=== PATIENT | female | born 1950 | race Caucasian/White ===

== ENCOUNTER 2020-06-10 13:07 | Inpatient (IN) ==
--- NOTE | 2020-06-10 13:23 | Emergency Department Note ---
SOB HPI General Chief Complaint: Shortness of Breath/Dyspnea Stated Complaint: Shortness of breath Time Seen by Provider: 06/10/20 13:22 History of Present Illness HPI Narrative: 69-year-old morbidly obese patient who presented to the urgent care yesterday with viral symptoms. She was tested for Covid, which is pending. She presents again today now with complaints of worsening shortness of breath. Her pulse ox on room air is 89% and her heart rate is 99 bpm. She is afebrile. She has a history of pulmonary fibrosis on nocturnal O2. She was diagnosed with this 4 years ago after a prolonged exposure to birds. She notes that her home oxygen requirement is usually 2 L only at night. Her sats typically run 90% on room air. Since last she has had increasing oxygen requirements needing 3 L nasal cannula 24 hours a day. She notes that her O2 sats dropped down to 84% on room air. She is unable to do any exertional activities due to shortness of breath. She has had a low-grade nonproductive cough. She complains of daily diarrhea up to 4 times a day. Yesterday it was watery, today it has "chunks" in it. No hematochezia or melena. Patient has significant comorbidities to include morbid obesity, diabetes, history of DVT on chronic anticoagulation, hyperlipidemia and hypertension. Related Data Home Medications Medication Instructions Recorded Confirmed docusate sodium 100 mg capsule 100 mg PO BID 05/05/20 06/10/20 metformin 500 mg tablet,extended See Rx Instructions .ROUTE .COMPLEX 05/05/20 06/10/20 release 24 hr simvastatin 5 mg tablet 20 mg PO HS 05/05/20 06/10/20 warfarin 7.5 mg tablet See Rx Instructions .ROUTE 05/05/20 06/10/20 .COMPLEX tab coenzyme Q10 200 mg capsule 200 mg PO QHS 06/09/20 06/10/20 lisinopril 10 mg tablet 10 mg PO HS 06/09/20 06/10/20 acetaminophen [Tylenol Extra 1,000 mg PO Q6H PRN 06/10/20 06/10/20 Strength] Allergies Allergy/AdvReac Type Severity Reaction Status Date / Time No Known Intolerances Allergy Unknown NONE Verified 06/10/20 13:31 [NO KNOWN INTOLERANCES] Review of Systems ROS ROS Narrative: Narrative: PFSH Narrative Patient History Narrative: Narrative: Medical/Surgical/Family History All Active Problems (Updated 06/10/20 @ 22:48 by Myla Matt PA-C) Pneumonia due to 2019 novel coronavirus (Acute) Diarrhea (Acute) Viral syndrome (Acute) History of surgery (Chronic) Morbid obesity (Chronic) Hypertension (Chronic) Chronic bronchitis (Chronic) Personal history of other venous thrombosis and embolism (Chronic) Type 2 diabetes mellitus without complications (Chronic) Low back pain (Chronic) Spondylosis without myelopathy or radiculopathy, lumbar region (Chronic) Spinal stenosis, lumbar region with neurogenic claudication (Chronic) Other intervertebral disc degeneration, lumbar region (Chronic) Radiculopathy, lumbar region (Chronic) Chronic pain (Chronic) Radiculopathy, lumbosacral region (Chronic) Medical History Chronic bronchitis (Chronic) Chronic pain (Chronic) Hypertension (Chronic) Low back pain (Chronic) Morbid obesity (Chronic) Other intervertebral disc degeneration, lumbar region (Chronic) Personal history of other venous thrombosis and embolism (Chronic) Radiculopathy, lumbar region (Chronic) Radiculopathy, lumbosacral region (Chronic) Spinal stenosis, lumbar region with neurogenic claudication (Chronic) Spondylosis without myelopathy or radiculopathy, lumbar region (Chronic) Type 2 diabetes mellitus without complications (Chronic) Surgical History History of surgery (Chronic) LESI #1 L5-S1 w/sed 03/03/2003/19 LESI #2 L5-S1 w/sed 03/29/1902/16 LESI #1 L3-4 w/sed 02/12/19 Family History Other No pertinent family history Social History Smoking Status: Never smoker Alcohol Intake Frequency: does not drink Substance Use: does not use Exam Narrative Narrative: Narrative: Course Course Course Narrative: 69-year-old female presents with viral syndrome and worsening shortness of breath. Reevaluation(s) Reevaluation #1: Viral pneumonia: Portable chest x-ray shows bilateral patchy infiltrates. Her symptoms are consistent with Covid, suspect this is likely Covid related pneumonia. -CBC and CMP are pending -Procalcitonin pending -She will likely need admission; rapid Covid screen has been ordered -Start remdesivir 200 mg IV and dexamethasone 6 mg p.o. Reevaluation #2: Patient has a fever of 100.1. She has been given oral acetaminophen. Rapid Covid screen is positive. Procalcitonin is elevated at 0.28; however, her CBC shows no leukocytosis or left shift. She does have renal insufficiency with a creatinine of 1.5. Her baseline is unknown. She also has mild hyponatremia with a sodium of 130. She has been given 1 L of normal saline IV fluids. Vital Signs Vital signs: Vital Signs Pulse Rate 100 H 06/10/20 13:16 Blood Pressure 93/67 06/10/20 13:16 Pulse Oximetry (%) 94 06/10/20 13:16 Temperature 97.6 F 06/10/20 20:02 Pulse Rate 86 06/10/20 16:17 Respiratory Rate 20 06/10/20 22:15 Blood Pressure 109/63 06/10/20 22:01 Pulse Oximetry (%) 90 06/10/20 22:15 MDM MDM Narrative Medical decision making narrative: Covid pneumonia: Rapid Covid screen is positive. Covid NAAT is still pending from [facility] yesterday. The patient has multiple comorbidities including chronic lung disease. Her chest x-ray shows bilateral pneumonia. She is requiring oxygen at this time and meets criteria for inpatient admission and initiation of dexamethasone and remdesivir. -Case is discussed with Dr. Gay, hospitalist who is excepting the patient for admission Lab Data Result diagrams: 06/10/20 13:47 06/10/20 13:47 Labs: Lab Results 06/10/20 06/10/20 06/10/20 Range/Units 13:47 13:47 13:47 WBC 5.0 (4.5-11.0) K/mcL RBC 4.77 (4.00-5.20) M/mcL Hgb 15.2 H (12.0-15.0) g/dL Hct 45.1 (36.0-48.0) % POC Hct (36-48) % MCV 94.5 (80.0-100.0) fL MCH 31.9 (26.0-34.0) pg MCHC 33.7 (31.0-36.0) g/dL RDW 12.8 (11.5-14.5) % Plt Count 203 (140-440) K/mcL MPV 10.3 (7.4-10.4) fL Neut % (Auto) 70.6 (38.0-78.0) % Lymph % (Auto) 20.6 (15.0-49.0) % [place] % (Auto) 8.4 (1.0-12.0) % Eos % (Auto) 0 (0.0-7.0) % Baso % (Auto) 0.4 (0.0-2.0) % Lymph # (Auto) 1.03 L (1.50-4.80) K/mcL [place] # (Auto) 0.42 (0.10-0.90) K/mcL Eos # (Auto) 0 (0.00-0.70) K/mcL Baso # (Auto) 0.02 (0.00-0.20) K/mcL Absolute Neutrophils 3.52 (1.80-8.00) K/mcL PT INR D-Dimer (0.27-0.50) ug/mL VBG Lactic Acid (0.5-2.0) mmol/L POC Sodium (133-145) mEq/L Sodium 130 L (133-145) mmol/L POC Potassium (3.3-5.1) mEql/L Potassium 4.5 (3.3-5.1) mmol/L POC Chloride (96-108) mEq/L Chloride 95 L (96-108) mmol/L Carbon Dioxide 19 L (22-30) mmol/L POC Total CO2 (22-30) mmol/L Anion Gap 16.0 (8.0-16.0) POC BUN (6-20) mg/dL BUN 33 H (8-23) mg/dL Creatinine 1.5 H (0.6-1.1) mg/dL POC Creatinine (0.6-1.2) mg/dL GFR Calculation 35 Glucose 153 H (70-105) mg/dL POC Glucose (70-105) mg/dL Calcium 8.6 (8.6-10.4) mg/dL POC WB Ioniz Calcium (1.16-1.32) mmEq/L Ferritin (30.0-400.0) ng/mL Total Bilirubin 0.3 (0.1-1.0) mg/dL AST 31 (<32) U/L ALT 16 (<40) U/L Alkaline Phosphatase 53 (39-117) U/L Troponin T (<0.03) ng/mL C-Reactive Protein (0.03-0.80) mg/dL NT-Pro-B Natriuret Pep (<125.0) pg/mL Total Protein 7.3 (5.9-8.4) gm/dL Albumin 3.7 (3.2-5.2) gm/dL Globulin 3.6 (2.2-3.7) gm/dL Albumin/Globulin Ratio 1.0 (1.0-2.3) 25-OH Vitamin D Total (>30.00) ng/mL Procalcitonin 0.28 H (<0.10) ng/mL SARS-CoV-2 (PCR) (Negative) 06/10/20 06/10/20 06/10/20 Range/Units 14:17 17:00 17:01 WBC (4.5-11.0) K/mcL RBC (4.00-5.20) M/mcL Hgb (12.0-15.0) g/dL Hct (36.0-48.0) % POC Hct 42 (36-48) % MCV (80.0-100.0) fL MCH (26.0-34.0) pg MCHC (31.0-36.0) g/dL RDW (11.5-14.5) % Plt Count (140-440) K/mcL MPV (7.4-10.4) fL Neut % (Auto) (38.0-78.0) % Lymph % (Auto) (15.0-49.0) % [place] % (Auto) (1.0-12.0) % Eos % (Auto) (0.0-7.0) % Baso % (Auto) (0.0-2.0) % Lymph # (Auto) (1.50-4.80) K/mcL [place] # (Auto) (0.10-0.90) K/mcL Eos # (Auto) (0.00-0.70) K/mcL Baso # (Auto) (0.00-0.20) K/mcL Absolute Neutrophils (1.80-8.00) K/mcL PT INR D-Dimer (0.27-0.50) ug/mL VBG Lactic Acid (0.5-2.0) mmol/L POC Sodium 134 (133-145) mEq/L Sodium (133-145) mmol/L POC Potassium 4.4 (3.3-5.1) mEql/L Potassium (3.3-5.1) mmol/L POC Chloride 102 (96-108) mEq/L Chloride (96-108) mmol/L Carbon Dioxide (22-30) mmol/L POC Total CO2 23 (22-30) mmol/L Anion Gap (8.0-16.0) POC BUN 43 H (6-20) mg/dL BUN (8-23) mg/dL Creatinine (0.6-1.1) mg/dL POC Creatinine 1.6 H (0.6-1.2) mg/dL GFR Calculation Glucose (70-105) mg/dL POC Glucose 109 H (70-105) mg/dL Calcium (8.6-10.4) mg/dL POC WB Ioniz Calcium 1.07 L (1.16-1.32) mmEq/L Ferritin (30.0-400.0) ng/mL Total Bilirubin (0.1-1.0) mg/dL AST (<32) U/L ALT (<40) U/L Alkaline Phosphatase (39-117) U/L Troponin T (<0.03) ng/mL C-Reactive Protein (0.03-0.80) mg/dL NT-Pro-B Natriuret Pep (<125.0) pg/mL Total Protein (5.9-8.4) gm/dL Albumin (3.2-5.2) gm/dL Globulin (2.2-3.7) gm/dL Albumin/Globulin Ratio (1.0-2.3) 25-OH Vitamin D Total 28.96 L (>30.00) ng/mL Procalcitonin (<0.10) ng/mL SARS-CoV-2 (PCR) Positive A (Negative) 06/10/20 06/10/20 06/10/20 Range/Units 17:02 17:02 17:02 WBC (4.5-11.0) K/mcL RBC (4.00-5.20) M/mcL Hgb (12.0-15.0) g/dL Hct (36.0-48.0) % POC Hct (36-48) % MCV (80.0-100.0) fL MCH (26.0-34.0) pg MCHC (31.0-36.0) g/dL RDW (11.5-14.5) % Plt Count (140-440) K/mcL MPV (7.4-10.4) fL Neut % (Auto) (38.0-78.0) % Lymph % (Auto) (15.0-49.0) % [place] % (Auto) (1.0-12.0) % Eos % (Auto) (0.0-7.0) % Baso % (Auto) (0.0-2.0) % Lymph # (Auto) (1.50-4.80) K/mcL [place] # (Auto) (0.10-0.90) K/mcL Eos # (Auto) (0.00-0.70) K/mcL Baso # (Auto) (0.00-0.20) K/mcL Absolute Neutrophils (1.80-8.00) K/mcL PT TNP INR TNP D-Dimer 0.47 (0.27-0.50) ug/mL VBG Lactic Acid (0.5-2.0) mmol/L POC Sodium (133-145) mEq/L Sodium (133-145) mmol/L POC Potassium (3.3-5.1) mEql/L Potassium (3.3-5.1) mmol/L POC Chloride (96-108) mEq/L Chloride (96-108) mmol/L Carbon Dioxide (22-30) mmol/L POC Total CO2 (22-30) mmol/L Anion Gap (8.0-16.0) POC BUN (6-20) mg/dL BUN (8-23) mg/dL Creatinine (0.6-1.1) mg/dL POC Creatinine (0.6-1.2) mg/dL GFR Calculation Glucose (70-105) mg/dL POC Glucose (70-105) mg/dL Calcium (8.6-10.4) mg/dL POC WB Ioniz Calcium (1.16-1.32) mmEq/L Ferritin (30.0-400.0) ng/mL Total Bilirubin (0.1-1.0) mg/dL AST (<32) U/L ALT (<40) U/L Alkaline Phosphatase (39-117) U/L Troponin T < 0.01 (<0.03) ng/mL C-Reactive Protein (0.03-0.80) mg/dL NT-Pro-B Natriuret Pep (<125.0) pg/mL Total Protein (5.9-8.4) gm/dL Albumin (3.2-5.2) gm/dL Globulin (2.2-3.7) gm/dL Albumin/Globulin Ratio (1.0-2.3) 25-OH Vitamin D Total (>30.00) ng/mL Procalcitonin (<0.10) ng/mL SARS-CoV-2 (PCR) (Negative) 06/10/20 06/10/20 Range/Units 17:03 17:03 WBC (4.5-11.0) K/mcL RBC (4.00-5.20) M/mcL Hgb (12.0-15.0) g/dL Hct (36.0-48.0) % POC Hct (36-48) % MCV (80.0-100.0) fL MCH (26.0-34.0) pg MCHC (31.0-36.0) g/dL RDW (11.5-14.5) % Plt Count (140-440) K/mcL MPV (7.4-10.4) fL Neut % (Auto) (38.0-78.0) % Lymph % (Auto) (15.0-49.0) % [place] % (Auto) (1.0-12.0) % Eos % (Auto) (0.0-7.0) % Baso % (Auto) (0.0-2.0) % Lymph # (Auto) (1.50-4.80) K/mcL [place] # (Auto) (0.10-0.90) K/mcL Eos # (Auto) (0.00-0.70) K/mcL Baso # (Auto) (0.00-0.20) K/mcL Absolute Neutrophils (1.80-8.00) K/mcL PT INR D-Dimer (0.27-0.50) ug/mL VBG Lactic Acid 1.2 (0.5-2.0) mmol/L POC Sodium (133-145) mEq/L Sodium (133-145) mmol/L POC Potassium (3.3-5.1) mEql/L Potassium (3.3-5.1) mmol/L POC Chloride (96-108) mEq/L Chloride (96-108) mmol/L Carbon Dioxide (22-30) mmol/L POC Total CO2 (22-30) mmol/L Anion Gap (8.0-16.0) POC BUN (6-20) mg/dL BUN (8-23) mg/dL Creatinine (0.6-1.1) mg/dL POC Creatinine (0.6-1.2) mg/dL GFR Calculation Glucose (70-105) mg/dL POC Glucose (70-105) mg/dL Calcium (8.6-10.4) mg/dL POC WB Ioniz Calcium (1.16-1.32) mmEq/L Ferritin 954.2 H (30.0-400.0) ng/mL Total Bilirubin (0.1-1.0) mg/dL AST (<32) U/L ALT (<40) U/L Alkaline Phosphatase (39-117) U/L Troponin T (<0.03) ng/mL C-Reactive Protein 4.30 H (0.03-0.80) mg/dL NT-Pro-B Natriuret Pep 32.3 (<125.0) pg/mL Total Protein (5.9-8.4) gm/dL Albumin (3.2-5.2) gm/dL Globulin (2.2-3.7) gm/dL Albumin/Globulin Ratio (1.0-2.3) 25-OH Vitamin D Total (>30.00) ng/mL Procalcitonin (<0.10) ng/mL SARS-CoV-2 (PCR) (Negative) Discharge Plan Patient/Caregiver Discharge Instructions Pt seen by DIRECTOR LONG TERM CARE/PA only: Yes Clinical Impression: Viral syndrome, Pneumonia due to 2019 novel coronavirus Patient Disposition: Xfer As Inpt ([facility]) Condition: Fair Discharge Date/Time: 06/10/20 17:05
--- NOTE | 2020-06-10 14:13 | XRay Report ---
CLINICAL INFORMATION: dyspnea COMPARISON: None. FINDINGS: The heart is mildly enlarged. Mediastinum and pulmonary vessels are normal. Mild patchy infiltrates noted in both mid and lower lungs. No effusions IMPRESSION: Mild patchy infiltrates both mid and lower lungs. Infection versus aspiration. Interpreted and Authenticated by: Ronnell Lewis 06/10/20
[2020-06-10] MEDS ORDERED: 0.9 % SODIUM CHLORIDE 1,000 ML IV ONE (14:52)
[2020-06-10] MEDS: REMDESIVIR 200 MG in 0.9 % SODIUM CHLORIDE 250 ML IV ONE ×2 (14:53→15:39)
[2020-06-10] MEDS ORDERED: DEXAMETHASONE 0.5 MG/5 ML ORAL.SOL PO ONE (14:58)
[2020-06-10 15:13] LABS: Basophils # (Auto) 0.02 K/mcL (0.00-0.20); Basophils % (Auto) 0.4 % (0.0-2.0); Eosinophils # (Auto) 0 K/mcL (0.00-0.70); Eosinophils % (Auto) 0 % (0.0-7.0); Hematocrit 45.1 % (36.0-48.0); Hemoglobin 15.2 g/dL (12.0-15.0); Lymphocytes # (Auto) 1.03 K/mcL (1.50-4.80); Lymphocytes % (Auto) 20.6 % (15.0-49.0); Mean Cell Volume 94.5 fL (80.0-100.0); Mean Corpuscular HGB Conc 33.7 g/dL (31.0-36.0); Mean Platelet Volume 10.3 fL (7.4-10.4); Monocytes # (Auto) 0.42 K/mcL (0.10-0.90); Monocytes % (Auto) 8.4 % (1.0-12.0); Neutrophils % (Auto) 70.6 % (38.0-78.0); Platelet Count 203 K/mcL (140-440); RBC 4.77 M/mcL (4.00-5.20); Red Cell Distribution Width 12.8 % (11.5-14.5)
[2020-06-10 15:14] LABS: ALT/SGPT 16 U/L (<40); AST/SGOT 31 U/L (<32); Albumin 3.7 gm/dL (3.2-5.2); Alkaline Phosphatase 53 U/L (39-117); Bilirubin,Total 0.3 mg/dL (0.1-1.0); Blood Urea Nitrogen 33 mg/dL (8-23); Calcium 8.6 mg/dL (8.6-10.4); Carbon Dioxide 19 mmol/L (22-30); Chloride 95 mmol/L (96-108); Globulin 3.6 gm/dL (2.2-3.7); Glomerular Filtration Rate 35; Glucose 153 mg/dL (70-105)
[2020-06-10] MEDS ORDERED: ACETAMINOPHEN 325 MG TABLET PO ONE ×2 (15:35→15:41)
[2020-06-10] MEDS ORDERED: ONDANSETRON 4 MG/2 ML VIAL IV PRN ×2 (16:10→17:28)
[2020-06-10] MEDS ORDERED: IPRATROPIUM/ALBUTEROL 3 ML AMPUL.NEB NEB PRN ×2 (16:10→17:28)
[2020-06-10] MEDS ORDERED: LACTULOSE 20 GM/30 ML ORAL.SOL PO PRN ×2 (16:10→17:28)
[2020-06-10] MEDS ORDERED: ALBUTEROL SULFATE 2.5 MG/3 ML NEBULIZER INH PRN ×2 (16:10→17:28)
[2020-06-10] MEDS ORDERED: DEXAMETHASONE 4 MG TABLET PO ONE ×2 (16:15→17:28)
[2020-06-10] MEDS ORDERED: AZITHROMYCIN 500 MG in DEXTROSE 5% IN WATER 250 ML IV SCH (16:15)
[2020-06-10] MEDS ORDERED: cefTRIAXone 1 GM in DEXTROSE 5% IN WATER 50 ML IV SCH (16:15)
[2020-06-10] MEDS ORDERED: DEXTROSE 31 GM ORAL.SUSP PO PRN ×2 (16:16→17:28)
[2020-06-10] MEDS ORDERED: DEXTROSE 50% 50 ML VIAL IV PRN ×2 (16:16→17:28)
[2020-06-10] MEDS ORDERED: INSULIN LISPRO 1 UNIT/0.01 ML UNIT SQ SCH (17:00)
[2020-06-10 17:11] LABS: POC Blood Urea Nitrogen 43 mg/dL (6-20); POC CO2 23 mmol/L (22-30); POC Calcium, Ionized 1.07 mmEq/L (1.16-1.32); POC Chloride 102 mEq/L (96-108); POC Creatinine 1.6 mg/dL (0.6-1.2); POC Glucose, Random 109 mg/dL (70-105); POC Hematocrit 42 % (36-48); POC Potassium 4.4 mEql/L (3.3-5.1); POC Sodium 134 mEq/L (133-145)
--- NOTE | 2020-06-10 17:18 | Internal Med History&Physical ---
HPI History of Present Illness Patient information: Note initiated : 06/10/20 at 5:16 pm Service Date, if different from initiated Date: [] Patient: Trish Hood a 69 y/o F admitted on 06/10/20 for Shortness of breath. Chief Complaint: [] History of present illness: Ms. Hood is a 69 year old F with a past medical history of high blood pressure, pulmonary fibrosis, diabetes type 2, hypothyroidism, morbid obesity, and history of DVT on chronic anticoagulation who presented to the ER due to worsening shortness of breath. Patient has a pulmonary fibrosis which was diagnosed 4 years ago for which patient has been on nocturnal oxygen, usually 2 L. Since last , she has had increasing needs of oxygen to 3 L. She also complains of dry cough and diarrhea. She had a watery bowel movements yesterday x 4. But today her diarrhea is improved. Otherwise, patient is fine. In the ER, he was also found to have oxygen desaturation 89%. COVID-19 test was positive. Chest x-ray showed Mild patchy infiltrates both mid and lower lungs. Review of Systems All systems: reviewed and no additional remarkable complaints except as stated PFSH PFSH All Active Problems Diarrhea (Acute) Viral syndrome (Acute) History of surgery (Chronic) Morbid obesity (Chronic) Hypertension (Chronic) Chronic bronchitis (Chronic) Personal history of other venous thrombosis and embolism (Chronic) Type 2 diabetes mellitus without complications (Chronic) Low back pain (Chronic) Spondylosis without myelopathy or radiculopathy, lumbar region (Chronic) Spinal stenosis, lumbar region with neurogenic claudication (Chronic) Other intervertebral disc degeneration, lumbar region (Chronic) Radiculopathy, lumbar region (Chronic) Chronic pain (Chronic) Radiculopathy, lumbosacral region (Chronic) Medical History Chronic bronchitis (Chronic) Chronic pain (Chronic) Hypertension (Chronic) Low back pain (Chronic) Morbid obesity (Chronic) Other intervertebral disc degeneration, lumbar region (Chronic) Personal history of other venous thrombosis and embolism (Chronic) Radiculopathy, lumbar region (Chronic) Radiculopathy, lumbosacral region (Chronic) Spinal stenosis, lumbar region with neurogenic claudication (Chronic) Spondylosis without myelopathy or radiculopathy, lumbar region (Chronic) Type 2 diabetes mellitus without complications (Chronic) Surgical History History of surgery (Chronic) LESI #1 L5-S1 w/sed 03/03/2003/19 LESI #2 L5-S1 w/sed 03/29/1902/16 LESI #1 L3-4 w/sed 02/12/19 Family History Other No pertinent family history Social History smoking status: Never smoker alcohol intake frequency: does not drink substance use type: does not use MEDS/ALLERGIES Home Medications and Allergies Home Medications Medication Instructions Recorded Confirmed Type docusate sodium 100 mg capsule 100 mg PO QDAY 05/05/20 06/09/20 History metformin 500 mg tablet,extended 500 mg PO BID 05/05/20 06/10/20 History release 24 hr simvastatin 5 mg tablet 20 mg PO QDAY 05/05/20 06/10/20 History warfarin 7.5 mg tablet 7.5 mg PO QDAY tab 05/05/20 06/10/20 History coenzyme Q10 200 mg capsule 200 mg PO QDAY 06/09/20 06/09/20 History lisinopril 10 mg tablet 10 mg PO QDAY 06/09/20 06/10/20 History Allergies Allergy/AdvReac Type Severity Reaction Status Date / Time No Known Intolerances Allergy Unknown NONE Verified 06/10/20 13:31 [NO KNOWN INTOLERANCES] EXAM Constitutional Vitals: Temp Pulse Resp BP Pulse Ox 100.1 F H 86 20 96/69 95 06/10/20 15:40 06/10/20 16:17 06/10/20 13:27 06/10/20 16:17 06/10/20 16:17 Additional findings Additional findings: General - No acute distress Eyes - PERRLA, EOM intact ENT no rhinorrhea, no noticeable or palpable swelling, no redness or rash around throat or on face Neck supple, no JVD, no thyromegaly Respiratory: Lungs -course BS. Cardiovascular - RRR no m/r/g, GI - Normal bowel sounds, no distended, soft. Extremeties - No edema, cyanosis or clubbing Hemo/lymphatic/immune no lymphadenopathy Neurological Alert and oriented x 3, no focal neurological deficits. Psychiatry flat affect DATA Data Completed and Pending Labs: Labs from last 24 hours 06/10/20 06/10/20 06/10/20 17:03 17:03 17:02 WBC RBC Hgb Hct POC Hct MCV MCH MCHC RDW Plt Count MPV Neut % (Auto) Lymph % (Auto) Christian % (Auto) Eos % (Auto) Baso % (Auto) Lymph # (Auto) Christian # (Auto) Eos # (Auto) Baso # (Auto) Absolute Neutrophils D-Dimer Pending VBG Lactic Acid Pending POC Sodium Sodium POC Potassium Potassium POC Chloride Chloride Carbon Dioxide POC Total CO2 Anion Gap POC BUN BUN Creatinine POC Creatinine GFR Calculation Glucose POC Glucose Hemoglobin A1c Pending Estim Average Glucose Pending Calcium POC WB Ioniz Calcium Ferritin Pending Total Bilirubin AST ALT Alkaline Phosphatase Troponin T C-Reactive Protein Pending NT-Pro-B Natriuret Pep Pending Total Protein Albumin Globulin Albumin/Globulin Ratio 25-OH Vitamin D Total Procalcitonin SARS-CoV-2 (PCR) 06/10/20 06/10/20 06/10/20 17:02 17:01 17:00 WBC RBC Hgb Hct POC Hct 42 MCV MCH MCHC RDW Plt Count MPV Neut % (Auto) Lymph % (Auto) [place] % (Auto) Eos % (Auto) Baso % (Auto) Lymph # (Auto) Christian # (Auto) Eos # (Auto) Baso # (Auto) Absolute Neutrophils D-Dimer VBG Lactic Acid POC Sodium 134 Sodium POC Potassium 4.4 Potassium POC Chloride 102 Chloride Carbon Dioxide POC Total CO2 23 Anion Gap POC BUN 43 H BUN Creatinine POC Creatinine 1.6 H GFR Calculation Glucose POC Glucose 109 H Hemoglobin A1c Estim Average Glucose Calcium POC WB Ioniz Calcium 1.07 L Ferritin Total Bilirubin AST ALT Alkaline Phosphatase Troponin T Pending C-Reactive Protein NT-Pro-B Natriuret Pep Total Protein Albumin Globulin Albumin/Globulin Ratio 25-OH Vitamin D Total Pending Procalcitonin SARS-CoV-2 (PCR) 06/10/20 06/10/20 06/10/20 14:17 13:47 13:47 WBC RBC Hgb Hct POC Hct MCV MCH MCHC RDW Plt Count MPV Neut % (Auto) Lymph % (Auto) Christian % (Auto) Eos % (Auto) Baso % (Auto) Lymph # (Auto) Christian # (Auto) Eos # (Auto) Baso # (Auto) Absolute Neutrophils D-Dimer VBG Lactic Acid POC Sodium Sodium 130 L POC Potassium Potassium 4.5 POC Chloride Chloride 95 L Carbon Dioxide 19 L POC Total CO2 Anion Gap 16.0 POC BUN BUN 33 H Creatinine 1.5 H POC Creatinine GFR Calculation 35 Glucose 153 H POC Glucose Hemoglobin A1c Estim Average Glucose Calcium 8.6 POC WB Ioniz Calcium Ferritin Total Bilirubin 0.3 AST 31 ALT 16 Alkaline Phosphatase 53 Troponin T C-Reactive Protein NT-Pro-B Natriuret Pep Total Protein 7.3 Albumin 3.7 Globulin 3.6 Albumin/Globulin Ratio 1.0 25-OH Vitamin D Total Procalcitonin 0.28 H SARS-CoV-2 (PCR) Positive A 06/10/20 13:47 WBC 5.0 RBC 4.77 Hgb 15.2 H Hct 45.1 POC Hct MCV 94.5 MCH 31.9 MCHC 33.7 RDW 12.8 Plt Count 203 MPV 10.3 Neut % (Auto) 70.6 Lymph % (Auto) 20.6 Christian % (Auto) 8.4 Eos % (Auto) 0 Baso % (Auto) 0.4 Lymph # (Auto) 1.03 L Christian # (Auto) 0.42 Eos # (Auto) 0 Baso # (Auto) 0.02 Absolute Neutrophils 3.52 D-Dimer VBG Lactic Acid POC Sodium Sodium POC Potassium Potassium POC Chloride Chloride Carbon Dioxide POC Total CO2 Anion Gap POC BUN BUN Creatinine POC Creatinine GFR Calculation Glucose POC Glucose Hemoglobin A1c Estim Average Glucose Calcium POC WB Ioniz Calcium Ferritin Total Bilirubin AST ALT Alkaline Phosphatase Troponin T C-Reactive Protein NT-Pro-B Natriuret Pep Total Protein Albumin Globulin Albumin/Globulin Ratio 25-OH Vitamin D Total Procalcitonin SARS-CoV-2 (PCR) A/P Narrative A/P Narrative: 1. Acute hypoxic respiratory failure In the ER, she was found to have desaturation Pulse ox Oxygen therapy 2. Pneumonia, covid 19 or CAP 3. Positive Covid 19 CXR - Mild patchy infiltrates both mid and lower lungs. MRSA screen Blood culture Sputum culture Lactic acid, procalcitonin, CRP, ferritin, troponin, D-dimer Remdesivir 5 day course Prednisone 60 mg p.o. daily for 10 days Continue home warfarin Aspirin, vitamin D, thiamine 4. Pulmonary fibrosis Presumed stable 5. HTN Continue home medication 6. DM type 2 Diabetic diet Insulin sliding scale Will adjust insulin based blood sugar level Hemoglobin A1c 7. Hypothyroidism Continue home Synthroid 8. Morbid obesity Follow with PCP 9. Hx of DVT on chronic anticoagulation Continue home warfarin (dosing by pharmacy) 10. EUGENIO on EUGENIO on CKD Unknown chronicity Avoid nephrotoxic meds Repeat renal function in the morning 11. 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
[2020-06-10] MEDS: cefTRIAXone 1 GM VIAL IV SCH (17:53)
[2020-06-10] MEDS: AZITHROMYCIN 500 MG in DEXTROSE 5% IN WATER 250 ML IV SCH (17:53)
[2020-06-10 18:23] LABS: proBNP 32.3 pg/mL (<125.0)
[2020-06-10 18:30] LABS: Ferritin 954.2 ng/mL (30.0-400.0)
[2020-06-10 19:28] LABS: Vitamin D 25 Hydroxy-SO 28.96 ng/mL (>30.00)
[2020-06-10] MEDS: DOCUSATE SODIUM 100 MG CAPSULE PO SCH (20:05)
[2020-06-10] MEDS: INSULIN LISPRO 1 UNIT/0.01 ML UNIT SQ SCH (20:30)
[2020-06-10] MEDS: 0.9 % SODIUM CHLORIDE 10 ML SYRINGE IV SCH (20:31)
[2020-06-10] MEDS ORDERED: DOCUSATE SODIUM 100 MG CAPSULE PO SCH (21:00)
[2020-06-10] MEDS ORDERED: 0.9 % SODIUM CHLORIDE 10 ML SYRINGE IV SCH (22:00)
[2020-06-11] MEDS: 0.9 % SODIUM CHLORIDE 10 ML SYRINGE IV SCH ×3 (04:49→20:48)
[2020-06-11 07:10] LABS: ALT/SGPT 14 U/L (<40); AST/SGOT 25 U/L (<32); Albumin 3.5 gm/dL (3.2-5.2); Albumin/Globulin Ratio 0.9 (1.0-2.3); Alkaline Phosphatase 55 U/L (39-117); Bilirubin,Total 0.3 mg/dL (0.1-1.0); Blood Urea Nitrogen 30 mg/dL (8-23); Calcium 8.9 mg/dL (8.6-10.4); Carbon Dioxide 23 mmol/L (22-30); Chloride 100 mmol/L (96-108); Globulin 4.1 gm/dL (2.2-3.7); Glomerular Filtration Rate 56; Glucose 146 mg/dL (70-105); Phosphorous 2.8 mg/dL (2.5-4.5)
[2020-06-11 07:25] LABS: Prothrombin Time 23.3 sec (11.9-14.5)
[2020-06-11] MEDS ORDERED: PANTOPRAZOLE 40 MG TABLET PO SCH (07:30)
[2020-06-11 08:03] LABS: Basophils # (Auto) 0.01 K/mcL (0.00-0.20); Basophils % (Auto) 0.3 % (0.0-2.0); Eosinophils # (Auto) 0 K/mcL (0.00-0.70); Eosinophils % (Auto) 0 % (0.0-7.0); Hematocrit 43.9 % (36.0-48.0); Hemoglobin 14.6 g/dL (12.0-15.0); Lymphocytes # (Auto) 0.85 K/mcL (1.50-4.80); Lymphocytes % (Auto) 23.4 % (15.0-49.0); Mean Cell Volume 95.9 fL (80.0-100.0); Mean Corpuscular HGB Conc 33.3 g/dL (31.0-36.0); Mean Platelet Volume 10.2 fL (7.4-10.4); Monocytes # (Auto) 0.31 K/mcL (0.10-0.90); Monocytes % (Auto) 8.5 % (1.0-12.0); Neutrophils % (Auto) 67.8 % (38.0-78.0); Platelet Count 200 K/mcL (140-440); RBC 4.58 M/mcL (4.00-5.20); Red Cell Distribution Width 12.7 % (11.5-14.5); WBC 3.6 K/mcL (4.5-11.0)
[2020-06-11] MEDS: PANTOPRAZOLE 40 MG TABLET PO SCH (08:14)
[2020-06-11] MEDS: INSULIN LISPRO 1 UNIT/0.01 ML UNIT SQ SCH ×4 (08:17→20:48)
[2020-06-11 08:45] LABS: Estimated Average Glucose(eAG) 160 mg/dL; Hemoglobin A1C 7.2 % Hgb (4.0-6.0)
[2020-06-11] MEDS ORDERED: THIAMINE 100 MG TABLET PO SCH (09:00)
[2020-06-11] MEDS ORDERED: DEXAMETHASONE 4 MG TABLET PO SCH (09:00)
[2020-06-11] MEDS ORDERED: ASPIRIN 81 MG TAB.CHEW PO SCH (09:00)
[2020-06-11] MEDS ORDERED: VITAMIN D3 1,000 UNIT TABLET PO SCH (09:00)
[2020-06-11] MEDS: DOCUSATE SODIUM 100 MG CAPSULE PO SCH ×2 (09:39→20:47)
[2020-06-11] MEDS: AZITHROMYCIN 500 MG in DEXTROSE 5% IN WATER 250 ML IV SCH (09:40)
[2020-06-11] MEDS: ASPIRIN 81 MG TAB.CHEW PO SCH (09:40)
[2020-06-11] MEDS: THIAMINE 100 MG TABLET PO SCH (09:40)
[2020-06-11] MEDS: REMDESIVIR 100 MG in 0.9 % SODIUM CHLORIDE 250 ML IV SCH (10:00)
[2020-06-11] MEDS: DEXAMETHASONE 4 MG TABLET PO SCH (10:00)
[2020-06-11] MEDS: VITAMIN D3 1,000 UNIT TABLET PO SCH (10:01)
[2020-06-11] MEDS: cefTRIAXone 1 GM VIAL IV SCH (10:01)
--- NOTE | 2020-06-11 12:53 | Event Note ---
Event Note Event Note: Advanced Care Planning Documents: Parties in Attendance: pt pt's decisional Capacity: Yes POLST form completed: Not. I explained CPR and intubation in detail to her. She agreed with CPR and intubation.
--- NOTE | 2020-06-11 12:58 | Internal Med Progress Note ---
SUBJECTIVE Subjective Patient information: Note initiated : 06/11/20 at 12:54 pm Service Date, if different from initiated Date: [] Patient: Trish Hood a 69 y/o F admitted on 06/10/20 for Shortness of breath. Chief Complaint: [] History of present illness: Ms. Hood is a 69 year old F with a past medical history of high blood pressure, pulmonary fibrosis, diabetes type 2, hypothyroidism, morbid obesity, and history of DVT on chronic anticoagulation who presented to the ER due to worsening shortness of breath. Patient has a pulmonary fibrosis which was diagnosed 4 years ago for which patient has been on nocturnal oxygen, usually 2 L. Since last , she has had increasing ne eds of oxygen to 3 L. She also complains of dry cough and diarrhea. She had a watery bowel movements yesterday x 4. But today her diarrhea is improved. Otherwise, patient is fine. In the ER, he was also found to have oxygen desaturation 89%. COVID-19 test was positive. Chest x-ray showed Mild patchy infiltrates both mid and lower lungs. 06/11 Patient still complains of shortness of breath. Otherwise she is fine. Denies fever, chills, nausea or vomiting. She is on 5 L oxygen now. No overnight events Ferritin 954, CRP of 4.3, vitamin D 28.96, procalcitonin 0.28 Review of Systems Positive for shortness of breath. All other systems were reviewed and negative. Constitutional Vitals: Vital Signs Temp Pulse Resp BP Pulse Ox 97.0 F 86 22 120/84 93 06/11/20 12:01 06/10/20 16:17 06/11/20 12:01 06/11/20 12:01 06/11/20 12:01 Period Temp Pulse Resp BP Sys/Spangler Pulse Ox Last 24 Hr 97.0 F-100.1 F 77-100 19-28 90-138/43-126 86-98 Intake and Output 06/10/20 06/11/20 06/11/20 21:59 05:59 13:59 Intake Total 1500 860 Output Total 300 Balance 1500 560 Weight 105.914 kg Intake & Output: Intake & Output 06/10/20 06/11/20 06/11/20 21:59 05:59 13:59 Intake Total 1500 860 Output Total 300 Balance 1500 560 Weight 105.914 kg Intake: IV 1500 500 Sodium Chloride 0.9% 1,000 ml @ 1000 Wide Open IV [facility] Rx#: [id number] Zithromax 500 mg In Dextrose 5% 250 250 in Water 250 ml @ 250 mls/hr IV Q24H [facility] Rx#:[id number] Veklury 100 mg In Sodium 250 250 Chloride 0.9% 250 ml @ 500 mls/ hr IV Q24H [facility] Rx#:[id number] Oral 360 Output: Void Amount 300 Other: Meal Breakfast Percent of Meal Consumed 100% Feeding Ability Independent Stool Size Moderate Stool Color Brown Stool Consistency Loose # Voids 1 1 1 # Bowel Movements 1 Additional findings Additional findings: General - No acute distress Eyes - PERRLA, EOM intact ENT no rhinorrhea, no noticeable or palpable swelling, no redness or rash around throat or on face Neck supple, no JVD, no thyromegaly Respiratory: Lungs -course BS. Cardiovascular - RRR no m/r/g, GI - Normal bowel sounds, no distended, soft. Extremeties - No edema, cyanosis or clubbing Hemo/lymphatic/immune no lymphadenopathy Neurological Alert and oriented x 3, no focal neurological deficits. Psychiatry flat affect OBJ DATA Labs CBC & Chem 7: 06/11/20 05:05 06/11/20 05:05 Labs: Abnormal Lab Results 06/11/20 06/11/20 06/11/20 05:05 05:05 05:05 WBC 3.6 L Hgb Lymph # (Auto) 0.85 L PT 23.3 H INR 2.0 H Sodium Chloride Carbon Dioxide POC BUN BUN 30 H Creatinine POC Creatinine Glucose 146 H POC Glucose Hemoglobin A1c POC WB Ioniz Calcium Ferritin C-Reactive Protein Globulin 4.1 H Albumin/Globulin Ratio 0.9 L 25-OH Vitamin D Total Procalcitonin SARS-CoV-2 (PCR) 06/10/20 06/10/20 06/10/20 19:29 17:03 17:01 WBC Hgb Lymph # (Auto) PT 23.0 H INR 2.0 H Sodium Chloride Carbon Dioxide POC BUN BUN Creatinine POC Creatinine Glucose POC Glucose Hemoglobin A1c 7.2 H POC WB Ioniz Calcium Ferritin 954.2 H C-Reactive Protein 4.30 H Globulin Albumin/Globulin Ratio 25-OH Vitamin D Total 28.96 L Procalcitonin SARS-CoV-2 (PCR) 06/10/20 06/10/20 06/10/20 17:00 14:17 13:47 WBC Hgb Lymph # (Auto) PT INR Sodium Chloride Carbon Dioxide POC BUN 43 H BUN Creatinine POC Creatinine 1.6 H Glucose POC Glucose 109 H Hemoglobin A1c POC WB Ioniz Calcium 1.07 L Ferritin C-Reactive Protein Globulin Albumin/Globulin Ratio 25-OH Vitamin D Total Procalcitonin 0.28 H SARS-CoV-2 (PCR) Positive A 06/10/20 06/10/20 13:47 13:47 WBC Hgb 15.2 H Lymph # (Auto) 1.03 L PT INR Sodium 130 L Chloride 95 L Carbon Dioxide 19 L POC BUN BUN 33 H Creatinine 1.5 H POC Creatinine Glucose 153 H POC Glucose Hemoglobin A1c POC WB Ioniz Calcium Ferritin C-Reactive Protein Globulin Albumin/Globulin Ratio 25-OH Vitamin D Total Procalcitonin SARS-CoV-2 (PCR) Meds: Medications Albuterol Sulfate (Ventolin) 2.5 mg INH Q4HP PRN PRN Reason: Shortness Of Breath Or Wheezing Albuterol/Ipratropium (Duoneb) 3 ml NEB Q4HRT PRN PRN Reason: Shortness Of Breath Aspirin (Aspirin) 81 mg PO DAILY [facility] Last Admin: 06/11/20 09:40 Dose: 81 mg Documented by: Ceftriaxone Sodium (Rocephin) 1 gm IV Q24H [facility] Last Admin: 06/11/20 10:01 Dose: 1 gm Documented by: Dexamethasone (Decadron) 6 mg PO DAILY [facility] Last Admin: 06/11/20 10:00 Dose: 6 mg Documented by: Dextrose (Dextrose 50%) 0 ml IV UD PRN PRN Reason: Hypoglycemia Diagnostic Test (Pha) (Accu-Chek) 1 each FS ACHS [facility] Last Admin: 06/11/20 12:38 Dose: 1 each Documented by: Docusate Sodium (Colace) 100 mg PO BID [facility] Last Admin: 06/11/20 09:39 Dose: Not Given Documented by: Glucose (Insta-Glucose) 15 gm PO PRN PRN PRN Reason: Hypoglycemia Azithromycin 500 mg/ Dextrose 250 mls @ 250 mls/hr IV Q24H [facility]; Protocol Stop: 06/12/20 18:59 Last Infusion: 06/11/20 10:45 Dose: Infused Documented by: REMDESIVIR 100 mg/ Sodium (Chloride) 250 mls @ 500 mls/hr IV Q24H [facility] Stop: 06/14/20 10:29 Last Infusion: 06/11/20 11:10 Dose: Infused Documented by: Insulin Human Lispro (Humalog) 0 unit SQ ACHS [facility]; Protocol Last Admin: 06/11/20 12:40 Dose: 1 unit Documented by: Lactulose (Cephulac) 10 gm PO DAILYP PRN PRN Reason: Constipation Ondansetron HCl (Zofran) 4 mg IV Q4HP PRN; Protocol PRN Reason: Nausea And Vomiting Pantoprazole Sodium (Protonix) 40 mg PO QAMAC [facility] Last Admin: 06/11/20 08:14 Dose: Not Given Documented by: Sodium Chloride (Saline Flush) 10 ml IV Q8 [facility] Last Admin: 06/11/20 04:49 Dose: 10 ml Documented by: Thiamine HCl (Vitamin B1) 100 mg PO DAILY [facility] Last Admin: 06/11/20 09:40 Dose: 100 mg Documented by: Vitamin D (Vitamin D3) 1,000 unit PO DAILY [facility] Last Admin: 06/11/20 10:01 Dose: 1,000 unit Documented by: Warfarin Sodium (Coumadin Per Pharmacy) 1 [place] PO [facility] [place] Sodium (Coumadin) 7.5 mg PO ONCE@1400 ONE Stop: 06/11/20 14:01 A/P Narrative A/P Narrative: 1. Acute hypoxic respiratory failure In the ER, she was found to have desaturation Pulse ox Oxygen therapy 2. Pneumonia, covid 19 or CAP 3. Positive Covid 19 CXR - Mild patchy infiltrates both mid and lower lungs. MRSA screen negative Blood culture negative Ferritin 954, CRP of 4.3, vitamin D 28.96, procalcitonin 0.28, troponin negative, D-dimer 0.47 Remdesivir 5 day course Dexamethasone 6 mg p.o. daily for 10 days Continue home warfarin Aspirin, vitamin D, thiamine Rocephin and azithromycin (since June 10) 4. Pulmonary fibrosis Presumed stable 5. HTN Continue home medication 6. DM type 2 Diabetic diet Insulin sliding scale Will adjust insulin based blood sugar level Hemoglobin A1c 7.2 7. Hypothyroidism Continue home Synthroid 8. Morbid obesity Follow with PCP 9. Hx of DVT on chronic anticoagulation Continue home warfarin (dosing by pharmacy) 10.EUGENIO on CKD stage III Unknown chronicity Creatinine 1.0 today Avoid nephrotoxic meds Repeat renal function in the morning 11. DVT prophylaxis: Warfarin 12. 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
[2020-06-11] MEDS ORDERED: WARFARIN 7.5 MG TABLET PO ONE (14:00)
[2020-06-12] MEDS: 0.9 % SODIUM CHLORIDE 10 ML SYRINGE IV SCH ×3 (05:06→18:25)
[2020-06-12 07:01] LABS: ALT/SGPT 15 U/L (<40); AST/SGOT 21 U/L (<32); Albumin 3.3 gm/dL (3.2-5.2); Alkaline Phosphatase 46 U/L (39-117); Bilirubin,Total 0.3 mg/dL (0.1-1.0); Blood Urea Nitrogen 28 mg/dL (8-23); Calcium 8.8 mg/dL (8.6-10.4); Carbon Dioxide 23 mmol/L (22-30); Chloride 100 mmol/L (96-108); Globulin 3.2 gm/dL (2.2-3.7); Glomerular Filtration Rate 64; Glucose 139 mg/dL (70-105)
[2020-06-12] MEDS: PANTOPRAZOLE 40 MG TABLET PO SCH (07:05)
[2020-06-12] MEDS: INSULIN LISPRO 1 UNIT/0.01 ML UNIT SQ SCH ×4 (07:08→21:21)
[2020-06-12 07:18] LABS: Basophils # (Auto) 0.01 K/mcL (0.00-0.20); Basophils % (Auto) 0.2 % (0.0-2.0); Eosinophils # (Auto) 0 K/mcL (0.00-0.70); Eosinophils % (Auto) 0 % (0.0-7.0); Hematocrit 40.8 % (36.0-48.0); Hemoglobin 13.6 g/dL (12.0-15.0); Mean Cell Volume 95.3 fL (80.0-100.0); Mean Corpuscular HGB Conc 33.3 g/dL (31.0-36.0); Mean Platelet Volume 10.2 fL (7.4-10.4); Monocytes # (Auto) 0.55 K/mcL (0.10-0.90); Monocytes % (Auto) 9.7 % (1.0-12.0); Neutrophils % (Auto) 67.1 % (38.0-78.0); Platelet Count 198 K/mcL (140-440); RBC 4.28 M/mcL (4.00-5.20); Red Cell Distribution Width 12.6 % (11.5-14.5); WBC 5.7 K/mcL (4.5-11.0)
[2020-06-12 07:39] LABS: INR 2.1 (0.9-1.1); Prothrombin Time 23.9 sec (11.9-14.5)
[2020-06-12] MEDS: THIAMINE 100 MG TABLET PO SCH (09:15)
[2020-06-12] MEDS: VITAMIN D3 1,000 UNIT TABLET PO SCH (09:15)
[2020-06-12] MEDS: ASPIRIN 81 MG TAB.CHEW PO SCH ×2 (09:16→09:23)
[2020-06-12] MEDS: DOCUSATE SODIUM 100 MG CAPSULE PO SCH ×2 (09:16→21:14)
[2020-06-12] MEDS: DEXAMETHASONE 4 MG TABLET PO SCH (09:16)
[2020-06-12] MEDS: cefTRIAXone 1 GM VIAL IV SCH (09:17)
[2020-06-12] MEDS: REMDESIVIR 100 MG in 0.9 % SODIUM CHLORIDE 250 ML IV SCH (10:30)
[2020-06-12] MEDS: AZITHROMYCIN 500 MG in DEXTROSE 5% IN WATER 250 ML IV SCH (10:30)
[2020-06-12] MEDS ORDERED: WARFARIN 5 MG TABLET PO ONE (14:00)
--- NOTE | 2020-06-12 15:11 | Internal Med Progress Note ---
SUBJECTIVE Subjective Patient information: Note initiated : 06/12/20 at 3:09 pm Service Date, if different from initiated Date: [] Patient: Trish Hood a 69 y/o F admitted on 06/10/20 for Shortness of breath. Chief Complaint: [] Ms. Hood is a 69 year old F with a past medical history of high blood pressure, pulmonary fibrosis, diabetes type 2, hypothyroidism, morbid obesity, and history of DVT on chronic anticoagulation who presented to the ER due to worsening shortness of breath. Patient has a pulmonary fibrosis which was diagnosed 4 years ago for which patient has been on nocturnal oxygen, usually 2 L. Since last , she has had increasing needs of oxygen to 3 L. She a lso complains of dry cough and diarrhea. She had a watery bowel movements yesterday x 4. But today her diarrhea is improved. Otherwise, patient is fine. In the ER, he was also found to have oxygen desaturation 89%. COVID-19 test was positive. Chest x-ray showed Mild patchy infiltrates both mid and lower lungs. 06/11 Patient still complains of shortness of breath. Otherwise she is fine. Denies fever, chills, nausea or vomiting. She is on 5 L oxygen now. No overnight events Ferritin 954, CRP of 4.3, vitamin D 28.96, procalcitonin 0.28 06/12 Pt still has sob and is now on 5L. She has mild cough. Otherwise denies fever, chills, nausea or vomiting. No overnight event Review of Systems Positive for shortness of breath. All other systems were reviewed and negative. Constitutional Vitals: Vital Signs Temp Pulse Resp BP Pulse Ox 97.1 F 86 21 141/82 91 06/12/20 12:01 06/10/20 16:17 06/12/20 14:30 06/12/20 14:01 06/12/20 14:30 Period Temp Pulse Resp BP Sys/Spangler Pulse Ox Last 24 Hr 96.8 F-98.0 F 14-27 111-156/61-92 86-96 Intake and Output 06/12/20 06/12/20 06/12/20 05:59 13:59 21:59 Intake Total 1050 Output Total 900 1 Balance -900 1049 Intake & Output: Intake & Output 06/12/20 06/12/2006/12/20 05:59 13:59 21:59 Intake Total 1050 Output Total 900 1 Balance -900 1049 Intake: IV 500 Zithromax 500 mg In Dextrose 5% 250 in Water 250 ml @ 250 mls/hr IV Q24H [facility] Rx#:[id number] Veklury 100 mg In Sodium 250 Chloride 0.9% 250 ml @ 500 mls/ hr IV Q24H [facility] Rx#:[id number] Oral 550 Output: Urine Catheter Amount 650 Void Amount 250 1 Other: Meal Nourishment/Supplement Lunch Percent of Meal Consumed 100% 100% Feeding Ability Independent # Voids 1 Additional findings Additional findings: General - No acute distress Eyes - PERRLA, EOM intact ENT no rhinorrhea, no noticeable or palpable swelling, no redness or rash around throat or on face Neck supple, no JVD, no thyromegaly Respiratory: Lungs -course BS. Cardiovascular - RRR no m/r/g, GI - Normal bowel sounds, no distended, soft. Extremeties - No edema, cyanosis or clubbing Hemo/lymphatic/immune no lymphadenopathy Neurological Alert and oriented x 3, no focal neurological deficits. Psychiatry flat affect OBJ DATA Labs CBC & Chem 7: 06/12/20 05:06 06/12/20 05:06 Labs: Abnormal Lab Results 06/12/20 06/12/20 06/12/20 05:06 05:06 05:06 WBC Hgb Lymph # (Auto) 1.30 L PT 23.9 H INR 2.1 H Sodium Chloride Carbon Dioxide POC BUN BUN 28 H Creatinine POC Creatinine Glucose 139 H POC Glucose Hemoglobin A1c POC WB Ioniz Calcium Ferritin C-Reactive Protein Globulin Albumin/Globulin Ratio 25-OH Vitamin D Total Procalcitonin SARS-CoV-2 (PCR) 06/11/20 06/11/20 06/11/20 05:05 05:05 05:05 WBC 3.6 L Hgb Lymph # (Auto) 0.85 L PT 23.3 H INR 2.0 H Sodium Chloride Carbon Dioxide POC BUN BUN 30 H Creatinine POC Creatinine Glucose 146 H POC Glucose Hemoglobin A1c POC WB Ioniz Calcium Ferritin C-Reactive Protein Globulin 4.1 H Albumin/Globulin Ratio 0.9 L 25-OH Vitamin D Total Procalcitonin SARS-CoV-2 (PCR) 06/10/20 06/10/20 06/10/20 19:29 17:03 17:01 WBC Hgb Lymph # (Auto) PT 23.0 H INR 2.0 H Sodium Chloride Carbon Dioxide POC BUN BUN Creatinine POC Creatinine Glucose POC Glucose Hemoglobin A1c 7.2 H POC WB Ioniz Calcium Ferritin 954.2 H C-Reactive Protein 4.30 H Globulin Albumin/Globulin Ratio 25-OH Vitamin D Total 28.96 L Procalcitonin SARS-CoV-2 (PCR) 06/10/20 06/10/20 06/10/20 17:00 14:17 13:47 WBC Hgb Lymph # (Auto) PT INR Sodium Chloride Carbon Dioxide POC BUN 43 H BUN Creatinine POC Creatinine 1.6 H Glucose POC Glucose 109 H Hemoglobin A1c POC WB Ioniz Calcium 1.07 L Ferritin C-Reactive Protein Globulin Albumin/Globulin Ratio 25-OH Vitamin D Total Procalcitonin 0.28 H SARS-CoV-2 (PCR) Positive A 06/10/20 06/10/20 13:47 13:47 WBC Hgb 15.2 H Lymph # (Auto) 1.03 L PT INR Sodium 130 L Chloride 95 L Carbon Dioxide 19 L POC BUN BUN 33 H Creatinine 1.5 H POC Creatinine Glucose 153 H POC Glucose Hemoglobin A1c POC WB Ioniz Calcium Ferritin C-Reactive Protein Globulin Albumin/Globulin Ratio 25-OH Vitamin D Total Procalcitonin SARS-CoV-2 (PCR) Meds: Medications Albuterol Sulfate (Ventolin) 2.5 mg INH Q4HP PRN PRN Reason: Shortness Of Breath Or Wheezing Albuterol/Ipratropium (Duoneb) 3 ml NEB Q4HRT PRN PRN Reason: Shortness Of Breath Aspirin (Aspirin) 81 mg PO DAILY [facility] Last Admin: 06/12/20 09:23 Dose: Not Given Documented by: Ceftriaxone Sodium (Rocephin) 1 gm IV Q24H [facility] Last Admin: 06/12/20 09:17 Dose: 1 gm Documented by: Dexamethasone (Decadron) 6 mg PO DAILY [facility] Last Admin: 06/12/20 09:16 Dose: 6 mg Documented by: Dextrose (Dextrose 50%) 0 ml IV UD PRN PRN Reason: Hypoglycemia Diagnostic Test (Pha) (Accu-Chek) 1 each FS ACHS [facility] Last Admin: 06/12/20 11:16 Dose: 1 each Documented by: Docusate Sodium (Colace) 100 mg PO BID [facility] Last Admin: 06/12/20 09:16 Dose: 100 mg Documented by: Glucose (Insta-Glucose) 15 gm PO PRN PRN PRN Reason: Hypoglycemia Azithromycin 500 mg/ Dextrose 250 mls @ 250 mls/hr IV Q24H [facility]; Protocol Stop: 06/12/20 18:59 Last Infusion: 06/12/20 11:30 Dose: Infused Documented by: REMDESIVIR 100 mg/ Sodium (Chloride) 250 mls @ 500 mls/hr IV Q24H [facility] Stop: 06/14/20 10:29 Last Infusion: 06/12/20 11:00 Dose: Infused Documented by: Insulin Human Lispro (Humalog) 0 unit SQ ACHS [facility]; Protocol Last Admin: 06/12/20 11:22 Dose: 1 unit Documented by: Lactulose (Cephulac) 10 gm PO DAILYP PRN PRN Reason: Constipation Ondansetron HCl (Zofran) 4 mg IV Q4HP PRN; Protocol PRN Reason: Nausea And Vomiting Pantoprazole Sodium (Protonix) 40 mg PO QAMAC [facility] Last Admin: 06/12/20 07:05 Dose: Not Given Documented by: Sodium Chloride (Saline Flush) 10 ml IV Q8 [facility] Last Admin: 06/12/20 14:16 Dose: 10 ml Documented by: Thiamine HCl (Vitamin B1) 100 mg PO DAILY [facility] Last Admin: 06/12/20 09:15 Dose: 100 mg Documented by: Vitamin D (Vitamin D3) 1,000 unit PO DAILY [facility] Last Admin: 06/12/20 09:15 Dose: 1,000 unit Documented by: Warfarin Sodium (Coumadin Per Pharmacy) 1 order PO UD [facility] A/P Narrative A/P Narrative: 1. Acute hypoxic respiratory failure In the ER, she was found to have desaturation Pulse ox Oxygen therapy 2. Pneumonia, covid 19 or CAP 3. Positive Covid 19 CXR - Mild patchy infiltrates both mid and lower lungs. MRSA screen negative Blood culture negative Ferritin 954, CRP of 4.3, vitamin D 28.96, procalcitonin 0.28, troponin negati ve, D-dimer 0.47 Remdesivir 5 day course Dexamethasone 6 mg p.o. daily for 10 days Continue home warfarin Aspirin, vitamin D, thiamine Rocephin and azithromycin (since June 10) 4. Pulmonary fibrosis Presumed stable 5. HTN Continue home medication 6. DM type 2 Diabetic diet Insulin sliding scale Will adjust insulin based blood sugar level Hemoglobin A1c 7.2 7. Hypothyroidism Continue home Synthroid 8. Morbid obesity Follow with PCP 9. Hx of DVT on chronic anticoagulation Continue home warfarin (dosing by pharmacy) 10.EUGENIO on CKD stage III Unknown chronicity Creatinine 1.0 today Avoid nephrotoxic meds Repeat renal function in the morning 11. 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
[2020-06-13] MEDS: 0.9 % SODIUM CHLORIDE 10 ML SYRINGE IV SCH ×3 (05:30→22:27)
[2020-06-13] MEDS: PANTOPRAZOLE 40 MG TABLET PO SCH ×2 (07:15→07:37)
[2020-06-13] MEDS: INSULIN LISPRO 1 UNIT/0.01 ML UNIT SQ SCH ×4 (07:16→21:13)
[2020-06-13 07:35] LABS: Basophils # (Auto) 0.02 K/mcL (0.00-0.20); Basophils % (Auto) 0.3 % (0.0-2.0); Eosinophils # (Auto) 0.11 K/mcL (0.00-0.70); Eosinophils % (Auto) 1.9 % (0.0-7.0); Hemoglobin 13.8 g/dL (12.0-15.0); Lymphocytes # (Auto) 1.77 K/mcL (1.50-4.80); Lymphocytes % (Auto) 30.7 % (15.0-49.0); Mean Cell Volume 94.9 fL (80.0-100.0); Mean Corpuscular HGB Conc 33.7 g/dL (31.0-36.0); Mean Platelet Volume 10.5 fL (7.4-10.4); Monocytes # (Auto) 0.51 K/mcL (0.10-0.90); Monocytes % (Auto) 8.9 % (1.0-12.0); Neutrophils % (Auto) 58.2 % (38.0-78.0); Platelet Count 235 K/mcL (140-440); RBC 4.32 M/mcL (4.00-5.20); Red Cell Distribution Width 12.2 % (11.5-14.5); WBC 5.8 K/mcL (4.5-11.0)
[2020-06-13 07:52] LABS: ALT/SGPT 14 U/L (<40); AST/SGOT 19 U/L (<32); Albumin 3.1 gm/dL (3.2-5.2); Albumin/Globulin Ratio 0.9 (1.0-2.3); Alkaline Phosphatase 47 U/L (39-117); Bilirubin,Total 0.3 mg/dL (0.1-1.0); Blood Urea Nitrogen 28 mg/dL (8-23); Calcium 8.8 mg/dL (8.6-10.4); Carbon Dioxide 24 mmol/L (22-30); Chloride 101 mmol/L (96-108); Globulin 3.6 gm/dL (2.2-3.7); Glomerular Filtration Rate 74; Glucose 119 mg/dL (70-105)
[2020-06-13 08:08] LABS: INR 2.4 (0.9-1.1); Prothrombin Time 26.9 sec (11.9-14.5)
[2020-06-13] MEDS: DOCUSATE SODIUM 100 MG CAPSULE PO SCH ×2 (09:32→21:13)
[2020-06-13] MEDS: THIAMINE 100 MG TABLET PO SCH (09:32)
[2020-06-13] MEDS: REMDESIVIR 100 MG in 0.9 % SODIUM CHLORIDE 250 ML IV SCH (09:32)
[2020-06-13] MEDS: cefTRIAXone 1 GM VIAL IV SCH (09:32)
[2020-06-13] MEDS: DEXAMETHASONE 4 MG TABLET PO SCH (09:32)
[2020-06-13] MEDS: VITAMIN D3 1,000 UNIT TABLET PO SCH (09:32)
[2020-06-13] MEDS ORDERED: ONDANSETRON 4 MG/2 ML VIAL IV PRN (10:48)
[2020-06-13] MEDS ORDERED: IPRATROPIUM/ALBUTEROL 3 ML AMPUL.NEB NEB PRN (10:48)
[2020-06-13] MEDS ORDERED: ALBUTEROL SULFATE 2.5 MG/3 ML NEBULIZER INH PRN (10:48)
[2020-06-13] MEDS ORDERED: DEXTROSE 31 GM ORAL.SUSP PO PRN (10:48)
[2020-06-13] MEDS ORDERED: DEXTROSE 50% 50 ML VIAL IV PRN (10:48)
[2020-06-13] MEDS ORDERED: WARFARIN 7.5 MG TABLET PO ONE ×2 (14:00)
--- NOTE | 2020-06-13 14:16 | Internal Med Progress Note ---
SUBJECTIVE Subjective Patient information: Note initiated : 06/13/20 at 2:12 pm Service Date, if different from initiated Date: [] Patient: Trish Hood a 69 y/o F admitted on 06/10/20 for Shortness of breath. Chief Complaint: [] Ms. Hood is a 69 year old F with a past medical history of high blood pressure, pulmonary fibrosis, diabetes type 2, hypothyroidism, morbid obesity, and history of DVT on chronic anticoagulation who presented to the ER due to worsening shortness of breath. Patient has a pulmonary fibrosis which was diagnosed 4 years ago for which patient has been on nocturnal oxygen, usually 2 L. Since last , she has had increasing needs of oxygen to 3 L. She also complains of dry cough and diarrhea. She had a watery bowel movements yesterday x 4. But today her diarrhea is improved. Otherwise, patient is fine. In the ER, he was also found to have oxygen desaturation 89%. COVID-19 test was positive. Chest x-ray showed Mild patchy infiltrates both mid and lower lungs. 06/11 Patient still complains of shortness of breath. Otherwise she is fine. Denies fever, chills, nausea or vomiting. She is on 5 L oxygen now. No overnight events Ferritin 954, CRP of 4.3, vitamin D 28.96, procalcitonin 0.28 06/12 Pt still has sob and is now on 5L. She has mild cough. Otherwise denies fever, chills, nausea or vomiting. No overnight event 06/13 Patient condition relatively stable, she still needs 5 liter oxygen. She does not have any complaints. Denies fever, chills, nausea or vomiting. No overnight acute events Review of Systems Positive for shortness of breath. All other systems were reviewed and negative. Constitutional Vitals: Vital Signs Temp Pulse Resp BP Pulse Ox 97.5 F 86 25 H 141/124 93 06/13/20 08:02 06/10/20 16:17 06/13/20 11:00 06/13/20 11:00 06/13/20 11:00 Period Temp Pulse Resp BP Sys/Spangler Pulse Ox Last 24 Hr 97.3 F-98.2 F 15-27 97-152/55-124 79-98 Intake and Output 06/13/20 06/13/20 06/13/20 05:59 13:59 21:59 Intake Total 240 300 Output Total 1200 1 Balance -960 299 Intake & Output: Intake & Output 06/13/20 06/13/20 06/13/20 05:59 13:59 21:59 Intake Total 240 300 Output Total 1200 1 Balance -960 299 Intake: Oral 240 300 Output: Void Amount 1200 1 Other: Meal Breakfast Percent of Meal Consumed 100% Feeding Ability Independent Urine Appearance Clear Urine Color Bright Yellow Additional findings Additional findings: General - No acute distress Eyes - PERRLA, EOM intact ENT no rhinorrhea, no noticeable or palpable swelling, no redness or rash around throat or on face Neck supple, no JVD, no thyromegaly Respiratory: Lungs -course BS. Cardiovascular - RRR no m/r/g, GI - Normal bowel sounds, no distended, soft. Extremeties - No edema, cyanosis or clubbing Hemo/lymphatic/immune no lymphadenopathy Neurological Alert and oriented x 3, no focal neurological deficits. Psychiatry flat affect OBJ DATA Labs CBC & Chem 7: 06/13/20 05:09 06/13/20 05:09 Labs: Abnormal Lab Results 06/13/20 06/13/20 06/13/20 05:09 05:09 05:09 WBC Hgb MPV 10.5 H Lymph # (Auto) PT 26.9 H INR 2.4 H Sodium Chloride Carbon Dioxide POC BUN BUN 28 H Creatinine POC Creatinine Glucose 119 H POC Glucose Hemoglobin A1c POC WB Ioniz Calcium Ferritin C-Reactive Protein Albumin 3.1 L Globulin Albumin/Globulin Ratio 0.9 L 25-OH Vitamin D Total Procalcitonin SARS-CoV-2 (PCR) 06/12/20 06/12/20 06/12/20 05:06 05:06 05:06 WBC Hgb MPV Lymph # (Auto) 1.30 L PT 23.9 H INR 2.1 H Sodium Chloride Carbon Dioxide POC BUN BUN 28 H Creatinine POC Creatinine Glucose 139 H POC Glucose Hemoglobin A1c POC WB Ioniz Calcium Ferritin C-Reactive Protein Albumin Globulin Albumin/Globulin Ratio 25-OH Vitamin D Total Procalcitonin SARS-CoV-2 (PCR) 06/11/20 06/11/20 06/11/20 05:05 05:05 05:05 WBC 3.6 L Hgb MPV Lymph # (Auto) 0.85 L PT 23.3 H INR 2.0 H Sodium Chloride Carbon Dioxide POC BUN BUN 30 H Creatinine POC Creatinine Glucose 146 H POC Glucose Hemoglobin A1c POC WB Ioniz Calcium Ferritin C-Reactive Protein Albumin Globulin 4.1 H Albumin/Globulin Ratio 0.9 L 25-OH Vitamin D Total Procalcitonin SARS-CoV-2 (PCR) 06/10/20 06/10/20 06/10/20 19:29 17:03 17:01 WBC Hgb MPV Lymph # (Auto) PT 23.0 H INR 2.0 H Sodium Chloride Carbon Dioxide POC BUN BUN Creatinine POC Creatinine Glucose POC Glucose Hemoglobin A1c 7.2 H POC WB Ioniz Calcium Ferritin 954.2 H C-Reactive Protein 4.30 H Albumin Globulin Albumin/Globulin Ratio 25-OH Vitamin D Total 28.96 L Procalcitonin SARS-CoV-2 (PCR) 06/10/20 06/10/20 06/10/20 17:00 14:17 13:47 WBC Hgb MPV Lymph # (Auto) PT INR Sodium Chloride Carbon Dioxide POC BUN 43 H BUN Creatinine POC Creatinine 1.6 H Glucose POC Glucose 109 H Hemoglobin A1c POC WB Ioniz Calcium 1.07 L Ferritin C-Reactive Protein Albumin Globulin Albumin/Globulin Ratio 25-OH Vitamin D Total Procalcitonin 0.28 H SARS-CoV-2 (PCR) Positive A 06/10/20 06/10/20 13:47 13:47 WBC Hgb 15.2 H MPV Lymph # (Auto) 1.03 L PT INR Sodium 130 L Chloride 95 L Carbon Dioxide 19 L POC BUN BUN 33 H Creatinine 1.5 H POC Creatinine Glucose 153 H POC Glucose Hemoglobin A1c POC WB Ioniz Calcium Ferritin C-Reactive Protein Albumin Globulin Albumin/Globulin Ratio 25-OH Vitamin D Total Procalcitonin SARS-CoV-2 (PCR) Meds: Medications Albuterol Sulfate (Ventolin) 2.5 mg INH Q4HP PRN PRN Reason: Shortness Of Breath Or Wheezing Albuterol/Ipratropium (Duoneb) 3 ml NEB Q4HRT PRN PRN Reason: Shortness Of Breath Ceftriaxone Sodium (Rocephin) 1 gm IV Q24H [facility] Dexamethasone (Decadron) 6 mg PO DAILY [facility] Dextrose (Dextrose 50%) 0 ml IV UD PRN PRN Reason: Hypoglycemia Diagnostic Test (Pha) (Accu-Chek) 1 each FS [facility] Last Admin: 06/13/20 11:42 Dose: 1 each Documented by: Docusate Sodium (Colace) 100 mg PO BID [facility] Glucose (Insta-Glucose) 15 gm PO PRN PRN PRN Reason: Hypoglycemia REMDESIVIR 100 mg/ Sodium (Chloride) 250 mls @ 500 mls/hr IV Q24H [facility] Stop: 06/14/20 10:29 Insulin Human Lispro (Humalog) 0 unit SQ ACHS [facility]; Protocol Last Admin: 06/13/20 11:42 Dose: Not Given Documented by: Lactulose (Cephulac) 10 gm PO DAILYP PRN PRN Reason: Constipation Ondansetron HCl (Zofran) 4 mg IV Q4HP PRN; Protocol PRN Reason: Nausea And Vomiting Pantoprazole Sodium (Protonix) 40 mg PO QAMAC [facility] Sodium Chloride (Saline Flush) 10 ml IV Q8 [facility] Thiamine HCl (Vitamin B1) 100 mg PO DAILY [facility] Vitamin D (Vitamin D3) 1,000 unit PO DAILY [facility] Warfarin Sodium (Coumadin Per Pharmacy) 1 order PO UD [facility] A/P Narrative A/P Narrative: 1. Acute hypoxic respiratory failure In the ER, she was found to have desaturation Pulse ox Oxygen therapy 2. Pneumonia, covid 19 or CAP 3. Positive Covid 19 CXR - Mild patchy infiltrates both mid and lower lungs. MRSA screen negative Blood culture negative Ferritin 954, CRP of 4.3, vitamin D 28.96, procalcitonin 0.28, troponin negative, D-dimer 0.47 Remdesivir 5 day course Dexamethasone 6 mg p.o. daily for 10 days Continue home warfarin Aspirin, vitamin D, thiamine Rocephin and azithromycin (since June 10) 4. Pulmonary fibrosis Presumed stable 5. HTN Continue home medication 6. DM type 2 Diabetic diet Insulin sliding scale Will adjust insulin based blood sugar level Hemoglobin A1c 7.2 7. Hypothyroidism Continue home Synthroid 8. Morbid obesity Follow with PCP 9. Hx of DVT on chronic anticoagulation Continue home warfarin (dosing by pharmacy) 10.EUGENIO on CKD stage III Unknown chronicity Creatinine 1.0 today Avoid nephrotoxic meds Repeat renal function in the morning 11. 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
[2020-06-13] MEDS ORDERED: cefTRIAXone 1 GM VIAL IV SCH (17:00)
[2020-06-14] MEDS: 0.9 % SODIUM CHLORIDE 10 ML SYRINGE IV SCH ×3 (05:59→21:23)
[2020-06-14 07:39] LABS: Basophils # (Auto) 0.01 K/mcL (0.00-0.20); Basophils % (Auto) 0.2 % (0.0-2.0); Eosinophils # (Auto) 0.01 K/mcL (0.00-0.70); Eosinophils % (Auto) 0.2 % (0.0-7.0); Hematocrit 42.1 % (36.0-48.0); Lymphocytes # (Auto) 2.03 K/mcL (1.50-4.80); Lymphocytes % (Auto) 30.8 % (15.0-49.0); Mean Cell Volume 94.8 fL (80.0-100.0); Mean Corpuscular HGB Conc 33.3 g/dL (31.0-36.0); Mean Platelet Volume 10.2 fL (7.4-10.4); Monocytes # (Auto) 0.55 K/mcL (0.10-0.90); Monocytes % (Auto) 8.3 % (1.0-12.0); Neutrophils % (Auto) 60.5 % (38.0-78.0); Platelet Count 255 K/mcL (140-440); RBC 4.44 M/mcL (4.00-5.20); Red Cell Distribution Width 12.1 % (11.5-14.5); WBC 6.6 K/mcL (4.5-11.0)
[2020-06-14 08:25] LABS: ALT/SGPT 16 U/L (<40); AST/SGOT 18 U/L (<32); Albumin 3.3 gm/dL (3.2-5.2); Alkaline Phosphatase 47 U/L (39-117); Bilirubin,Total 0.3 mg/dL (0.1-1.0); Blood Urea Nitrogen 26 mg/dL (8-23); Carbon Dioxide 26 mmol/L (22-30); Chloride 100 mmol/L (96-108); Globulin 3.3 gm/dL (2.2-3.7); Glomerular Filtration Rate 74; Glucose 118 mg/dL (70-105)
[2020-06-14] MEDS: INSULIN LISPRO 1 UNIT/0.01 ML UNIT SQ SCH ×4 (08:29→20:53)
[2020-06-14] MEDS: PANTOPRAZOLE 40 MG TABLET PO SCH (08:30)
[2020-06-14] MEDS: DOCUSATE SODIUM 100 MG CAPSULE PO SCH ×2 (08:30→20:46)
[2020-06-14] MEDS: DEXAMETHASONE 4 MG TABLET PO SCH (08:31)
[2020-06-14] MEDS: VITAMIN D3 1,000 UNIT TABLET PO SCH (08:32)
[2020-06-14] MEDS: THIAMINE 100 MG TABLET PO SCH (08:32)
[2020-06-14 08:37] LABS: Prothrombin Time 31.6 sec (11.9-14.5)
[2020-06-14] MEDS: cefTRIAXone 1 GM VIAL IV SCH (08:52)
[2020-06-14] MEDS ORDERED: REMDESIVIR 100 MG in 0.9 % SODIUM CHLORIDE 250 ML IV SCH (10:00)
--- NOTE | 2020-06-14 13:55 | Internal Med Progress Note ---
SUBJECTIVE Subjective Patient information: Note initiated : 06/14/20 at 1:53 pm Service Date, if different from initiated Date: [] Patient: Trish Hood a 69 y/o F admitted on 06/10/20 for Shortness of breath. Chief Complaint: [] Ms. Hood is a 69 year old F with a past medical history of high blood pressure, pulmonary fibrosis, diabetes type 2, hypothyroidism, morbid obesity, and history of DVT on chronic anticoagulation who presented to the ER due to worsening shortness of breath. Patient has a pulmonary fibrosis which was diagnosed 4 years ago for which patient has been on nocturnal oxygen, usually 2 L. Since last , she has had increasing needs of oxygen to 3 L. She al so complains of dry cough and diarrhea. She had a watery bowel movements yesterday x 4. But today her diarrhea is improved. Otherwise, patient is fine. In the ER, he was also found to have oxygen desaturation 89%. COVID-19 test was positive. Chest x-ray showed Mild patchy infiltrates both mid and lower lungs. 06/11 Patient still complains of shortness of breath. Otherwise she is fine. Denies fever, chills, nausea or vomiting. She is on 5 L oxygen now. No overnight events Ferritin 954, CRP of 4.3, vitamin D 28.96, procalcitonin 0.28 06/12 Pt still has sob and is now on 5L. She has mild cough. Otherwise denies fever, chills, nausea or vomiting. No overnight event 06/13 Patient condition relatively stable, she still needs 5 liter oxygen. She does not have any complaints. Denies fever, chills, nausea or vomiting. No overnight acute events 06/14 Patient feels fine and does not have any complaints. She is now on 2 to 3.5 L but she told me that she has been on home oxygen 2 L. No overnight events Review of Systems Positive for shortness of breath. All other systems were reviewed and negative. Constitutional Vitals: Vital Signs Temp Pulse Resp BP Pulse Ox 98.3 F 88 22 187/97 91 06/14/20 12:00 06/14/20 12:00 06/14/20 12:00 06/14/20 12:00 06/14/20 12:00 Period Temp Pulse Resp BP Sys/Spangler Pulse Ox Last 24 Hr 96 F-98.3 F 56-88 18-22 124-187/57-97 91-96 Intake and Output 06/13/20 06/14/20 06/14/20 21:59 05:59 13:59 Intake Total 240 240 Balance 240 240 Weight 103.691 kg Intake & Output: Intake & Output 06/13/20 06/14/20 06/14/20 21:59 05:59 13:59 Intake Total 240 240 Balance 240 240 Weight 103.691 kg Intake: Nourishment/Supplement quantity 240 (ml) Oral 240 Other: Meal Dinner Percent of Meal Consumed 100% Nourishment/Supplement name Glucmarybelna # Voids 1 2 5 Additional findings Additional findings: General - No acute distress Eyes - PERRLA, EOM intact ENT no rhinorrhea, no noticeable or palpable swelling, no redness or rash around throat or on face Neck supple, no JVD, no thyromegaly Respiratory: Lungs -course BS. Cardiovascular - RRR no m/r/g, GI - Normal bowel sounds, no distended, soft. Extremeties - No edema, cyanosis or clubbing Hemo/lymphatic/immune no lymphadenopathy Neurological Alert and oriented x 3, no focal neurological deficits. Psychiatry flat affect OBJ DATA Labs CBC & Chem 7: 06/14/20 06:12 06/14/20 06:12 Labs: Abnormal Lab Results 06/14/20 06/14/20 06/13/20 06:12 06:12 05:09 MPV Lymph # (Auto) PT 31.6 H 26.9 H INR 3.0 H 2.4 H BUN 26 H Glucose 118 H Albumin Albumin/Globulin Ratio 06/13/20 06/13/20 06/12/20 05:09 05:09 05:06 MPV 10.5 H Lymph # (Auto) PT 23.9 H INR 2.1 H BUN 28 H Glucose 119 H Albumin 3.1 L Albumin/Globulin Ratio 0.9 L 06/12/20 06/12/20 05:06 05:06 MPV Lymph # (Auto) 1.30 L PT INR BUN 28 H Glucose 139 H Albumin Albumin/Globulin Ratio Meds: Medications Albuterol Sulfate (Ventolin) 2.5 mg INH Q4HP PRN PRN Reason: Shortness Of Breath Or Wheezing Albuterol/Ipratropium (Duoneb) 3 ml NEB Q4HRT PRN PRN Reason: Shortness Of Breath Ceftriaxone Sodium (Rocephin) 1 gm IV DAILY [facility] Last Admin: 06/14/20 08:52 Dose: 1 gm Documented by: Dexamethasone (Decadron) 6 mg PO DAILY [facility] Last Admin: 06/14/20 08:31 Dose: 6 mg Documented by: Dextrose (Dextrose 50%) 0 ml IV UD PRN PRN Reason: Hypoglycemia Diagnostic Test (Pha) (Accu-Chek) 1 each FS [facility] Last Admin: 06/14/20 12:30 Dose: 1 each Documented by: Docusate Sodium (Colace) 100 mg PO BID [facility] Last Admin: 06/14/20 08:30 Dose: 100 mg Documented by: Glucose (Insta-Glucose) 15 gm PO PRN PRN PRN Reason: Hypoglycemia Insulin Human Lispro (Humalog) 0 unit SQ [facility]; Protocol Last Admin: 06/14/20 12:45 Dose: 2 unit Documented by: Lactulose (Cephulac) 10 gm PO DAILYP PRN PRN Reason: Constipation Ondansetron HCl (Zofran) 4 mg IV Q4HP PRN; Protocol PRN Reason: Nausea And Vomiting Pantoprazole Sodium (Protonix) 40 mg PO QAMAC [facility] Last Admin: 06/14/20 08:30 Dose: Not Given Documented by: Sodium Chloride (Saline Flush) 10 ml IV Q8 [facility] Last Admin: 06/14/20 05:59 Dose: Not Given Documented by: Thiamine HCl (Vitamin B1) 100 mg PO DAILY [facility] Last Admin: 06/14/20 08:32 Dose: 100 mg Documented by: Vitamin D (Vitamin D3) 1,000 unit PO DAILY [facility] Last Admin: 06/14/20 08:32 Dose: 1,000 unit Documented by: Warfarin Sodium (Coumadin Per Pharmacy) 1 order PO UD [facility] A/P Narrative A/P Narrative: 1. Acute hypoxic respiratory failure In the ER, she was found to have desaturation Pulse ox Oxygen therapy, she is now on 2 to 3.5 L but she has been on home oxygen 2 L 2. Pneumonia, covid 19 or CAP 3. Positive Covid 19 CXR - Mild patchy infiltrates both mid and lower lungs. MRSA screen negative Blood culture negative Ferritin 954, CRP of 4.3, vitamin D 28.96, procalcitonin 0.28, troponin negative, D-dimer 0.47 She completed a 5-day course of remdesivir Dexamethasone 6 mg p.o. daily for 10 days Continue home warfarin (dosing by pharmacy) Aspirin, vitamin D, thiamine Rocephin and azithromycin (since June 10) 4. Pulmonary fibrosis Presumed stable 5. HTN Continue home medication 6. DM type 2 Diabetic diet Insulin sliding scale Will adjust insulin based blood sugar level Hemoglobin A1c 7.2 7. Hypothyroidism Continue home Synthroid 8. Morbid obesity Follow with PCP 9. Hx of DVT on chronic anticoagulation Continue home warfarin (dosing by pharmacy) 10.EUGENIO on CKD stage III Unknown chronicity Creatinine back to normal Avoid nephrotoxic meds Repeat renal function in the morning 11. DVT prophylaxis: Warfarin 12. CODE STATUS: Sat Tutor Spent With Patient Time: Total time spent is greater than 50% in coordination of care (as documented) at patient's floor/unit and/or counseling patient: QUALITY VTE Deep Vein Thrombosis/Pulmonary Embolism Present on Admission: No
[2020-06-14] MEDS: LACTULOSE 20 GM/30 ML ORAL.SOL PO PRN (17:25)
[2020-06-15] MEDS: 0.9 % SODIUM CHLORIDE 10 ML SYRINGE IV SCH (05:13)
[2020-06-15 07:21] LABS: Basophils # (Auto) 0.03 K/mcL (0.00-0.20); Basophils % (Auto) 0.4 % (0.0-2.0); Eosinophils # (Auto) 0.09 K/mcL (0.00-0.70); Eosinophils % (Auto) 1.1 % (0.0-7.0); Hematocrit 42.6 % (36.0-48.0); Hemoglobin 14.5 g/dL (12.0-15.0); Lymphocytes # (Auto) 2.19 K/mcL (1.50-4.80); Lymphocytes % (Auto) 27.1 % (15.0-49.0); Mean Cell Volume 93.6 fL (80.0-100.0); Mean Platelet Volume 10.1 fL (7.4-10.4); Monocytes # (Auto) 0.67 K/mcL (0.10-0.90); Monocytes % (Auto) 8.3 % (1.0-12.0); Neutrophils % (Auto) 63.1 % (38.0-78.0); Platelet Count 315 K/mcL (140-440); RBC 4.55 M/mcL (4.00-5.20); Red Cell Distribution Width 12.2 % (11.5-14.5); WBC 8.1 K/mcL (4.5-11.0)
[2020-06-15] MEDS: PANTOPRAZOLE 40 MG TABLET PO SCH (07:50)
[2020-06-15 07:53] LABS: ALT/SGPT 16 U/L (<40); AST/SGOT 17 U/L (<32); Albumin 3.5 gm/dL (3.2-5.2); Albumin/Globulin Ratio 1.1 (1.0-2.3); Alkaline Phosphatase 48 U/L (39-117); Bilirubin,Total 0.4 mg/dL (0.1-1.0); Blood Urea Nitrogen 26 mg/dL (8-23); Calcium 9.2 mg/dL (8.6-10.4); Carbon Dioxide 25 mmol/L (22-30); Chloride 99 mmol/L (96-108); Globulin 3.1 gm/dL (2.2-3.7); Glomerular Filtration Rate 64; Glucose 122 mg/dL (70-105)
[2020-06-15 08:14] LABS: INR 3.1 (0.9-1.1); Prothrombin Time 32.3 sec (11.9-14.5)
[2020-06-15] MEDS: LACTULOSE 20 GM/30 ML ORAL.SOL PO PRN (08:30)
[2020-06-15] MEDS: DEXAMETHASONE 4 MG TABLET PO SCH (08:33)
[2020-06-15] MEDS: INSULIN LISPRO 1 UNIT/0.01 ML UNIT SQ SCH (08:33)
[2020-06-15] MEDS: VITAMIN D3 1,000 UNIT TABLET PO SCH (08:33)
[2020-06-15] MEDS: THIAMINE 100 MG TABLET PO SCH (08:33)
[2020-06-15] MEDS: DOCUSATE SODIUM 100 MG CAPSULE PO SCH (08:33)
[2020-06-15] MEDS: cefTRIAXone 1 GM VIAL IV SCH (08:35)
--- NOTE | 2020-06-15 11:27 | Discharge Summary ---
Discharge Provider Provider Patient information: Note initiated : 06/15/20 at 11:25 am Service Date, if different from initiated Date: [] Patient: Trish Hood 69 y/o F admitted on 06/10/20 for Shortness of breath. Chief Complaint: [] Date of admission: 06/10/20 17:05 Discharge date: 06/15/20 Primary care physician: Silvio Aguilar Consults: 06/11/20 08:26 Consult to Physician [CONS] Routine Comment: Consulting Provider: Ghislaine Gay Reason For Exam: Physician to Consult Discharge Meds Discharge Medications Home Medications docusate sodium 100 mg capsule 100 mg PO BID 05/05/20 [History Confirmed 06/10 Last Taken Unknown] metformin 500 mg tablet,extended release 24 hr See Rx Instructions .ROUTE .COMPLEX 05/05/20 [History Confirmed 06/10/20 Last Taken Unknown] simvastatin 5 mg tablet 20 mg PO HS 05/05/20 [History Confirmed 06/10/20 Last Taken Unknown] warfarin 7.5 mg tablet See Rx Instructions .ROUTE .COMPLEX tab 05/05/20 [History Confirmed 06/10/20 Last Taken Unknown] lisinopril 10 mg tablet 10 mg PO HS 06/09/20 [History Confirmed 06/10/20 Last Taken Unknown] dexamethasone 6 mg PO DAILY #4 tab 06/15/20 [Rx Last Taken Unknown] insulin lispro [Humalog U-100 Insulin] See Rx Instructions .ROUTE .COMPLEX #10 ml 06/15/20 [Rx Last Taken Unknown] COURSE Hospital Course Hospital course: Ms. Hood is a 69 year old F with a past medical history of high blood pressure, pulmonary fibrosis, diabetes type 2, hypothyroidism, morbid obesity, and history of DVT on chronic anticoagulation who presented to the ER due to worsening shortness of breath. Patient has a pulmonary fibrosis which was diagnosed 4 years ago for which patient has been on nocturnal oxygen, usually 2 L. Since last , she has had increasing needs of oxygen to 3 L. She also complains of dry cough and diarrhea. She had a watery bowel movements yesterday x 4. But today her diarrhea is improved. Otherwise, patient is fine. In the ER, he was also found to have oxygen desaturation 89%. COVID-19 test was positive. Chest x-ray showed Mild patchy infiltrates both mid and lower lungs. 1. Acute hypoxic respiratory failure In the ER, she was found to have desaturation Pulse ox Oxygen therapy, she is now on 2 to 3.5 L but she has been on home oxygen 2 L 2. Pneumonia, covid 19 or CAP 3. Positive Covid 19 CXR - Mild patchy infiltrates both mid and lower lungs. MRSA screen negative Blood culture negative Ferritin 954, CRP of 4.3, vitamin D 28.96, procalcitonin 0.28, troponin negative, D-dimer 0.47 She completed a 5-day course of remdesivir Dexamethasone 6 mg p.o. daily. she will be discharged on dexamethasone with tapering Continue home warfarin (dosing by pharmacy) Aspirin, vitamin D, thiamine Completed course of Rocephin and azithromycin 4. Pulmonary fibrosis Presumed stable 5. HTN Continue home medication 6. DM type 2 Diabetic diet Insulin sliding scale Will adjust insulin based blood sugar level Hemoglobin A1c 7.2 Patient sugar level has been high since she started steroid. She will be discharged on dexamethasone with tapering. Adjust insulin based on sugar level. 7. Hypothyroidism Continue home Synthroid 8. Morbid obesity Follow with PCP 9. Hx of DVT on chronic anticoagulation Continue home warfarin (dosing by pharmacy) 10.EUGENIO on CKD stage III Unknown chronicity Creatinine back to normal Avoid nephrotoxic meds Repeat renal function in the morning 11. Supratherapeutic INR 3.1 today please hold coumadin today and repeat INR in 1-2 days 06/11 Patient still complains of shortness of breath. Otherwise she is fine. Denies fever, chills, nausea or vomiting. She is on 5 L oxygen now. No overnight events Ferritin 954, CRP of 4.3, vitamin D 28.96, procalcitonin 0.28 06/12 Pt still has sob and is now on 5L. She has mild cough. Otherwise denies fever, chills, nausea or vomiting. No overnight event 06/13 Patient condition relatively stable, she still needs 5 liter oxygen. She does not have any complaints. Denies fever, chills, nausea or vomiting. No overnight acute events 06/14 Patient feels fine and does not have any complaints. She is now on 2 to 3.5 L but she told me that she has been on home oxygen 2 L. No overnight events 06/15 Patient does not have any complaints. She wants to go home. She is on 1 to 2 L. She is on home oxygen 2 L. Continue home oxygen. She has concentrated oxygen at home ready. CM okay to home. She will be discharged home to follow with PCP within 3 days and her veterinary microbiologist in 1 week. She needs to repeat INR within 2 days. Her warfarin is on hold today. She needs to continue to quarantine. Do not drive until approval from MD. Call PCP for medical issues. Discharge diagnosis: Acute hypoxic respiratory failure, Pneumonia Time Spent with Patient Time attestation: Total time spent providing and/or coordinating discharge services: EXAM Constitutional Vitals: Temp Pulse Resp BP Pulse Ox 97.6 F 90 18 130/79 90 06/15/20 07:41 06/15/20 07:41 06/15/20 07:41 06/15/20 07:41 06/15/20 08:00 Additional findings Additional findings: General - No acute distress Eyes - PERRLA, EOM intact ENT no rhinorrhea, no noticeable or palpable swelling, no redness or rash around throat or on face Neck supple, no JVD, no thyromegaly Respiratory: Lungs -course BS (improved). Cardiovascular - RRR no m/r/g, GI - Normal bowel sounds, no distended, soft. Extremeties - No edema, cyanosis or clubbing Hemo/lymphatic/immune no lymphadenopathy Neurological Alert and oriented x 3, no focal neurological deficits. Psychiatry flat affect Discharge Data Data Completed and Pending Labs on day of discharge: Labs from last 24 hours 06/15/20 06/15/20 06/15/20 06:09 06:09 06:09 WBC 8.1 RBC 4.55 Hgb 14.5 Hct 42.6 MCV 93.6 MCH 31.9 MCHC 34.0 RDW 12.2 Plt Count 315 MPV 10.1 Neut % (Auto) 63.1 Lymph % (Auto) 27.1 [place] % (Auto) 8.3 Eos % (Auto) 1.1 Baso % (Auto) 0.4 Lymph # (Auto) 2.19 [place] # (Auto) 0.67 Eos # (Auto) 0.09 Baso # (Auto) 0.03 Absolute Neutrophils 5.11 PT 32.3 H INR 3.1 H Sodium 136 Potassium 4.6 Chloride 99 Carbon Dioxide 25 Anion Gap 12.0 BUN 26 H Creatinine 0.9 GFR Calculation 64 Glucose 122 H Calcium 9.2 Total Bilirubin 0.4 AST 17 ALT 16 Alkaline Phosphatase 48 Total Protein 6.6 Albumin 3.5 Globulin 3.1 Albumin/Globulin Ratio 1.1 Preliminary micro results at discharge 06/10/20 17:04 Blood Culture - Preliminary Blood 06/10/20 16:35 Blood Culture - Preliminary Blood Discharge Plan Patient/Caregiver Discharge Instructions Activity: increase activity as tolerated Diet: Consistent Carbohydrate Activity Restrictions/Additional Instructions: follow with PCP within 3 days and her veterinary microbiologist in 1 week. repeat INR within 2 days. warfarin is on hold today. Adjust warfarin based on INR level. continue to quarantine. Do not drive until approval from MD. Call PCP for medical issues Prescriptions: New dexamethasone 4 mg Tablet 6 mg PO DAILY Qty: 4 RF: 0 insulin lispro [Humalog U-100 Insulin] 100 unit/mL Solution See Rx Instructions .ROUTE .COMPLEX Qty: 10 RF: 0 Continued warfarin 7.5 mg tablet See Rx Instructions .ROUTE .COMPLEX RF: 0 simvastatin 5 mg tablet 20 mg PO HS RF: 0 metformin 500 mg tablet extended release 24 hr See Rx Instructions .ROUTE .COMPLEX RF: 0 docusate sodium [Dulcolax Stool Softener (dss)] 100 mg capsule 100 mg PO BID RF: 0 lisinopril 10 mg tablet 10 mg PO HS RF: 0 Discontinued coenzyme Q10 [Co Q-10] 200 mg capsule 200 mg PO QHS RF: 0 acetaminophen [Tylenol Extra Strength] 500 mg Tablet 1,000 mg PO Q6H PRN (Reason: Pain) RF: 0 Other Ambulatory Orders: Complete Blood Count (Routine) Timeframe: 2 Days Facility: [facility] - Location: Laboratory Ordered By: Ghislaine Gay Comprehensive Metabolic Panel (Routine) Timeframe: 2 Days Facility: [facility] - Location: Laboratory Ordered By: Ghislaine Gay Prothrombin Time INR (Routine) Timeframe: 2 Days Facility: [facility] - Location: Laboratory Ordered By: Ghislaine Gay Follow Up Plan Follow up with: Silvio Aguilar MD [Primary Care Provider] - (in 3days) Unknown [Outside] (follow with PCP within 3 days and her veterinary microbiologist in 1 week. repeat INR within 2 days. warfarin is on hold today. Adjust warfarin based on INR level. continue to quarantine. Do not drive until approval from MD. Call PCP for medical issues) Patient Disposition: Home, Self-Care Prognosis: Fair Discharge Orders: Discharge Order (Routine); Ordered 06/15/20 Ordered By: Ghislaine Gay Interventions Interventions: IV at Discharge Last Done: 06/10/20 17:19 QUALITY VTE Deep Vein Thrombosis/Pulmonary Embolism Present on Admission: No
== END 2020-06-15 12:37 | disposition home or self-care (01) | DRG 189 ==
LOC: ED 13:07 → SUATTDRO 17:05 → ICU 17:05 → MEDSUR 06-13 16:30
PROVIDERS: ADMIT Internal Medicine; ATTEND Internal Medicine